=== PATIENT | male | born 1990 | race American Indian/Alaskan Native ===

== ENCOUNTER 2016-09-12 18:38 | Emergency (ER) | payer SELFPAY ==
[2016-09-12 20:15] VITALS: BP 116/72
[2016-09-12] MEDS ORDERED: TETRACAINE 0.5% OU ONE (20:42)
[2016-09-12] MEDS ORDERED: FUL-GLO OP ONE (20:42)
--- NOTE | 2016-09-12 20:42 | Emergency Department Report ---
[facility] Chief Complaint: Eye Problems Stated Complaint: PINK EYE Duration: 2 Days Side: Right Severity: mild Symptoms: Yes Eye Itching, Yes Eye Redness, Yes Mucous Drainage, No Eye Pain, No Purulent Drainage, No Blurred Vision, No Preceding URI, No H/O Allergic Rhinitis, No Contact Lens Use (glasses), No Trauma, No Fever, No Headache Other History: 26 year old male presents to ED with right eye redness. patient states he has had clear drainage and mattering/crusting of right eye. patient is stable, neurologically intact and in no acute distress. patient denies pain, loss of vision, blurry vision, headache, trauma. ED Review of Systems ROS: Stated complaint: PINK EYE Other details as noted in HPI Constitutional: denies: chills, fever Eyes: eye discharge. denies: eye pain, vision change ENT: denies: ear pain, throat pain Respiratory: denies: cough, shortness of breath, wheezing Cardiovascular: denies: chest pain, palpitations Endocrine: no symptoms reported Gastrointestinal: denies: abdominal pain, nausea, diarrhea Genitourinary: denies: urgency, dysuria Musculoskeletal: denies: back pain, joint swelling, arthralgia Skin: denies: rash, lesions Neurological: denies: headache, weakness, paresthesias Psychiatric: denies: anxiety, depression Hematological/Lymphatic: denies: easy bleeding, easy bruising ED Past Medical Hx - Past Medical History Previous Medical History?: No - Surgical History Past Surgical History?: No - Social History Smoking Status: Current Every Day Smoker Substance Use Type: None - Medications Home Medications: Home Medications Medication Instructions Recorded Confirmed Last Taken Type Doxycycline [Vibramycin CAP] 100 mg PO BID #20 capsule 05/14/13 Unknown Rx HYDROcodone/ACETAMINOPHEN [[place] 1 each PO Q6HR #20 tablet 05/14/13 Unknown Rx 5/325 Tablet] Ibuprofen [Motrin] 600 mg PO Q8H PRN #60 tablet 05/14/13 Unknown Rx Sulfamethoxazole/Trimethoprim 1 each PO BID #20 tablet 05/14/13 Unknown Rx [Bactrim Ds] Erythromycin Base [Erythromycin] 0.5 film OD Q4H #1 gm 09/12/16 Unknown Rx Tobramycin 1 drop OD Q4H #5 ml 09/12/16 Unknown Rx [facility] Exam - Exam General: Vital signs noted. No distress. Alert and acting appropriately. Eye Exam: Right Injection, Right Mucous Discharge, Right Fluorescein Uptake ( normal on Wood's lamp exam), Neither Abnormal Pupil (none), Neither EOMI (normal ), Neither Eye Foreign Body (none), Neither Lid Foreign Body (none), Neither Photophobia (none) HEENT: No Nasal Congestion, No Pharyngeal Erythema Remainder of HEENT: Normal Lungs: Yes Clear Lung Sounds, Yes Good Air Exchange, No Wheezes, No Stridor, No Cough, No Nasal Flaring, No Retractions, No Use of Accessory Muscles ED Course Vital Signs 09/12/16 20:11 Temperature 99.2 F Pulse Rate 91 H Respiratory 18 Rate Blood Pressure 116/72 O2 Sat by Pulse 97 Oximetry ED Medical Decision Making - Medical Decision Making 26 year old male presents to ED with right eye redness. patient has normal Wood' s lamp exam with no corneal abrasion present on exam. patient will be treated for bacterial conjunctivits. Critical care attestation.: If time is entered above; I have spent that time in minutes in the direct care of this critically ill patient, excluding procedure time. ED Disposition Clinical Impression: Conjunctivitis of right eye Qualifiers: Conjunctivitis type: acute Acute conjunctivitis type: unspecified Qualified Code(s): H10.31 - Unspecified acute conjunctivitis, right eye Disposition: DC- TO HOME OR SELFCARE Is pt being admited?: No Does the pt Need Aspirin: No Condition: Stable Instructions: Conjunctivitis (ED) Prescriptions: Erythromycin Base [Erythromycin] 0.5 film OD Q4H #1 gm Tobramycin 1 drop OD Q4H #5 ml Referrals: JACE WINTER MD [Primary Care Provider] - 3-5 Days [facility] [Provider [facility]] - 3-5 Days Forms: Work/School Release Form(ED)
== END 2016-09-12 21:40 | disposition home or self-care (01) ==
LOC: ED 18:38
DX: H10.31 Unspecified acute conjunctivitis, right eye (principal); F17.200 Nicotine dependence, unspecified, uncomplicated
CPT/HCPCS: 99283